=== PATIENT | female | born 1990 | race Caucasian/White ===

== ENCOUNTER 2018-10-23 19:36 | Emergency (ER) | payer OTHER ==
[~2018-10-23] VITALS: Ht 154.9 cm; Wt 62.6 kg
[~2018-10-23 19:36] MED LIST: ACET500 PO; AMOCLA500 PO; AMOX500 PO; BCP; BENZ100A PO; CIPRSO OD; CODACE30 PO; CYCL10 PO; Coumadin7.5 MG PO; Esgic Tablet1 EACH PO; Florastor250 MG PO; HYDACE5 PO; HYDR.5TC TOP; IBUP600 PO; Lovenox100 MG/1 M SC; METPRE4DP PO; MULTCH; MULVITMINE PO; NAPR500 PO; NEOPOLHYDS OT; NITR100CA PO; ONDA4ODT MM; OXYACE5T PO; POTCHL20ER PO; PROM25 PO; Percocet 5-3251 EACH PO; RXCYCL10 PO; SEASONIQUE; SULTRIDS PO; TRAACE PO; TRAM50 PO; Zithromax250 MG PO; [UNRECOGNIZED DRUG - OTHER]; [UNRECOGNIZED DRUG - REMARK]
== END 2018-10-23 20:56 | disposition home or self-care (01) ==
LOC: ER 19:36
DX: S22.31XA Fracture of one rib, right side, initial encounter for closed fracture (principal); Y04.8XXA Assault by other bodily force, initial encounter; F17.200 Nicotine dependence, unspecified, uncomplicated
CPT/HCPCS: 71046; 99283-25; A9270

== ENCOUNTER 2018-12-17 14:25 | Emergency (ER) | payer OTHER ==
[~2018-12-17] VITALS: Ht 157.5 cm; Wt 49.9 kg
== END 2018-12-17 15:32 | disposition left against medical advice (07) ==
LOC: ER 14:25
DX: Z53.21 Procedure and treatment not carried out due to patient leaving prior to being seen by health care provider (principal)

== ENCOUNTER 2018-12-20 20:12 | Emergency (ER) | payer OTHER ==
[~2018-12-20] VITALS: Ht 162.6 cm; Wt 65.8 kg
== END 2018-12-20 22:20 | disposition home or self-care (01) ==
LOC: ER 20:12
DX: F25.9 Schizoaffective disorder, unspecified (principal); G43.909 Migraine, unspecified, not intractable, without status migrainosus; F17.200 Nicotine dependence, unspecified, uncomplicated
CPT/HCPCS: 99283

== ENCOUNTER 2019-11-04 13:16 | Emergency (ER) | payer OTHER ==
[~2019-11-04] VITALS: Ht 144.8 cm; Wt 63.2 kg
[~2019-11-04 13:16] MED LIST changes: +POTASSIUM CHLO20 MEQ PO; +PRENATAL TABLE1 EAC2 PO
== END 2019-11-04 13:30 | disposition left against medical advice (07) ==
LOC: ER 13:16
DX: Z53.21 Procedure and treatment not carried out due to patient leaving prior to being seen by health care provider (principal)
CPT/HCPCS: 99281

== ENCOUNTER 2020-08-26 04:03 | Emergency (ER) | payer OTHER ==
[~2020-08-26] VITALS: Ht 154.9 cm; Wt 65.8 kg
[~2020-08-26 04:03] MED LIST changes: +METH40 PO
== END 2020-08-26 05:12 | disposition home or self-care (01) ==
LOC: ER 04:03
DX: R05 Cough (principal); F17.200 Nicotine dependence, unspecified, uncomplicated; Z79.891 Long term (current) use of opiate analgesic; Z87.442 Personal history of urinary calculi
CPT/HCPCS: 87081; 87430; 96372-59; 96374; 99283-25; J1100; J1885

== ENCOUNTER → 2021-01-21 | Outpatient (CLI) | payer OTHER ==
[2021-01-22 10:10] LABS: Candida species (DNA Probe) Negative (NEGATIVE); G. vaginalis (DNA Probe) Positive (NEGATIVE); T. vaginalis (DNA Probe) Positive (NEGATIVE)
[2021-01-22 23:08] LABS: CHLAMYDIA TRACHOMATIS, NAA Negative (Negative)
== END | disposition home or self-care (01) ==
LOC: LAB 13:00 → LAB SHORT 13:00
PROVIDERS: Nurse Practitioner
DX: N89.8 Other specified noninflammatory disorders of vagina (principal); Z20.2 Contact with and (suspected) exposure to infections with a predominantly sexual mode of transmission
CPT/HCPCS: 87480; 87491; 87510; 87591; 87660

== ENCOUNTER → 2021-06-06 | Outpatient (CLI) | payer OTHER ==
[2021-06-07 14:23] LABS: Candida species (DNA Probe) Negative (NEGATIVE); G. vaginalis (DNA Probe) Positive (NEGATIVE); T. vaginalis (DNA Probe) Negative (NEGATIVE)
[2021-06-07 20:11] LABS: CHLAMYDIA TRACHOMATIS, NAA Negative (Negative)
== END ==
LOC: LAB SHORT 13:45
PROVIDERS: Registered Nurse Community Health
DX: Z11.3 Encounter for screening for infections with a predominantly sexual mode of transmission (principal); N89.8 Other specified noninflammatory disorders of vagina; R39.15 Urgency of urination
CPT/HCPCS: 87086; 87480; 87491; 87510; 87591; 87660

== ENCOUNTER 2021-09-24 10:16 | Emergency (ER) | payer OTHER ==
[~2021-09-24] VITALS: Ht 154.9 cm; Wt 68.0 kg
[2021-09-24] MEDS ORDERED: DEXT30SU PO (12:00)
[2021-09-24] MEDS ORDERED: KETO10 PO (12:00)
[2021-09-24 13:12] LABS: Influenza B, PCR NEGATIVE (NEGATIVE); Resp Syncytial Virus, PCR NEGATIVE (NEGATIVE); SARS-Cov-2 (COVID-19) PCR, MMC NEGATIVE (NEGATIVE)
[2021-09-24] MEDS ORDERED: Tamiflu75 MG PO (13:19)
[2021-09-24 13:27] LABS: Influenza A, PCR POSITIVE (NEGATIVE)
[2021-09-24] MEDS ORDERED: SYMMETREL PO (16:41)
== END 2021-09-24 14:35 | disposition home or self-care (01) ==
LOC: ER 10:16
PROVIDERS: Physician Assistant
DX: J10.1 Influenza due to other identified influenza virus with other respiratory manifestations (principal); F17.200 Nicotine dependence, unspecified, uncomplicated; Z88.5 Allergy status to narcotic agent; Z20.822 Contact with and (suspected) exposure to COVID-19
CPT/HCPCS: 0241U; A9270

== ENCOUNTER → 2022-08-01 | Outpatient (CLI) | payer OTHER ==
[~2022-08-01] MED LIST changes: +DEXT30SU PO; +KETO10 PO; +SYMMETREL PO; +Tamiflu75 MG PO
[2022-08-01 19:31] LABS: BASOPHILS ABSOLUTE AUTO 0.02 K/mm3 (0.00-0.23); BASOPHILS PERCENT AUTO 0 % (0-2); EOSINOPHILS ABSOLUTE AUTO 0.11 K/mm3 (0.00-0.68); EOSINOPHILS PERCENT AUTO 2 % (0-6); Hemoglobin 12.5 g/dL (11.5-16.0); IMMATURE GRAN ABSOLUTE AUTO 0.01 K/mm3 (0.00-0.10); IMMATURE GRAN PERCENT AUTO 0 % (0-1); LYMPHOCYTES PERCENT AUTO 38 % (21-46); MONOCYTES ABSOLUTE AUTO 0.44 K/mm3 (0.16-1.47); MONOCYTES PERCENT AUTO 8 % (4-13); Mean Corpuscular HGB 28.6 pg (26.0-34.0); Mean Corpuscular HGB Conc 32.9 g/dL (31.5-36.5); Mean Corpuscular Volume 87 fL (80-100); Mean Platelet Volume 12.3 fL (9.1-12.4); NEUTROPHILS ABSOLUTE AUTO 2.76 K/mm3 (1.96-9.15); NEUTROPHILS PERCENT AUTO 52 % (41-73); Platelet Count 79 K/mm3 (150-400); RDW Coefficient Variation 12.9 % (11.7-14.2); RDW Standard Deviation 40.9 fL (35.1-46.3); Red Blood Cell Count 4.37 M/mm3 (3.80-5.20); White Blood Cell Count 5.34 K/mm3 (4.00-11.30)
[2022-08-01 20:22] LABS: Prolactin 28.9 ng/mL
[2022-08-01 20:25] LABS: Albumin, Blood 4.1 g/dL (3.4-5.0); Albumin/Globulin Ratio 0.9 (0.8-1.8); Bilirubin, Total 0.5 mg/dL (0.1-1.0); Bun/Creatinine Ratio 14.9 (12.0-20.0); Calcium, Blood 8.8 mg/dL (8.5-10.1); Creatinine, Blood 0.74 mg/dL (0.40-1.00); Globulin, Blood 4.4 g/dL (2.2-4.0); Potassium, Blood 3.9 mmol/L (3.5-5.5); Thyroid Stimulating Hormone 6.16 uIU/mL (0.360-4.800); Total Protein, Blood 8.5 g/dL (6.4-8.2)
[2022-08-01 22:05] LABS: Candida species (DNA Probe) Negative (NEGATIVE); G. vaginalis (DNA Probe) Negative (NEGATIVE); T. vaginalis (DNA Probe) Negative (NEGATIVE)
[2022-08-03 00:10] LABS: CHLAMYDIA TRACHOMATIS, NAA Negative (Negative)
== END | disposition home or self-care (01) ==
LOC: LAB SHORT 14:49 → LAB 14:49
PROVIDERS: Nurse Practitioner Family
DX: Z32.00 Encounter for pregnancy test, result unknown (principal); Z13.29 Encounter for screening for other suspected endocrine disorder; N89.8 Other specified noninflammatory disorders of vagina; G43.109 Migraine with aura, not intractable, without status migrainosus; N64.4 Mastodynia
CPT/HCPCS: 80053; 84146; 84443; 85025; 87086; 87480; 87491; 87510; 87591; 87660

== ENCOUNTER 2023-06-07 14:46 | Emergency (ER) | payer OTHER ==
[~2023-06-07] VITALS: Ht 167.6 cm; Wt 74.8 kg
[2023-06-07 18:43] VITALS: BP 135/88
[2023-06-07] MEDS ORDERED: [UNRECOGNIZED DRUG - OTHER] PO ×2 (19:03→19:05)
[2023-06-07] MEDS ORDERED: MIRALAX17 GM PO ×2 (19:03→19:05)
[2023-06-07] MEDS ORDERED: MINERAL OIL133 M1 PR ×2 (19:03→19:05)
== END 2023-06-07 18:40 | disposition home or self-care (01) ==
LOC: ER 14:46
DX: K59.00 Constipation, unspecified (principal); G43.909 Migraine, unspecified, not intractable, without status migrainosus; F17.200 Nicotine dependence, unspecified, uncomplicated
CPT/HCPCS: 74018; 99283-25

== ENCOUNTER → 2024-10-01 | Outpatient (CLI) | payer OTHER | LOC: LAB 13:33 → LAB SHORT 13:33 | DX: N89.8 Other specified noninflammatory disorders of vagina (principal) ==

== ENCOUNTER → 2025-02-26 | Outpatient (CLI) | payer OTHER ==
[~2025-02-26] MED LIST changes: +FLUT.05NI; +MINERAL OIL133 M1 PR; +MIRALAX17 GM PO; +Zyrtec10 MG PO; +[UNRECOGNIZED DRUG - OTHER] PO
[2025-02-26 19:26] LABS: Candida Group, PCR NOT DETECTED (NOT DETECT); Candida glabrata-krusei, PCR NOT DETECTED (NOT DETECT)
[2025-02-26 19:29] LABS: Bacterial Vaginosis PCR Positive (NEGATIVE)
[2025-02-26 19:56] LABS: Chlamydia Trachomatis Vaginal NOT DETECTED (NOT DETECT); Neisseria Gonorrhoea Vaginal NOT DETECTED (NOT DETECT)
[2025-02-28 15:00] LABS: HIV 1,2 COMBO ANTIGEN/ANTIBODY Negative (Negative)
[2025-03-04 04:07] LABS: HSV SUBTYPE SOURCE PERI-ANAL
== END ==
LOC: LAB SHORT 16:53 → LAB 16:53
PROVIDERS: Emergency Medicine
DX: R59.0 Localized enlarged lymph nodes (principal); Z87.898 Personal history of other specified conditions
CPT/HCPCS: 81515; 86592; 87389; 87491; 87529; 87591

== ENCOUNTER → 2025-03-19 | Outpatient (CLI) | payer OTHER ==
[2025-03-23 09:02] LABS: HSV SUBTYPE SOURCE Blood
== END ==
LOC: LAB SHORT 14:00 → LAB 14:00
PROVIDERS: Nurse Practitioner Family
DX: Z09 Encounter for follow-up examination after completed treatment for conditions other than malignant neoplasm (principal); Z86.19 Personal history of other infectious and parasitic diseases
CPT/HCPCS: 87529

== ENCOUNTER → 2025-03-21 | Outpatient (CLI) | payer OTHER ==
[~2025-03-21] MED LIST changes: -FLUT.05NI; -Zyrtec10 MG PO
[2025-03-21 18:25] LABS: BASOPHILS ABSOLUTE AUTO 0.02 K/mm3 (0.00-0.23); BASOPHILS PERCENT AUTO 0 % (0-2); EOSINOPHILS ABSOLUTE AUTO 0.10 K/mm3 (0.00-0.68); EOSINOPHILS PERCENT AUTO 2 % (0-6); Hematocrit 37.0 % (33.0-51.0); Hemoglobin 12.1 g/dL (11.5-16.0); IMMATURE GRAN ABSOLUTE AUTO 0.01 K/mm3 (0.00-0.10); IMMATURE GRAN PERCENT AUTO 0 % (0-1); LYMPHOCYTES ABSOLUTE AUTO 1.65 K/mm3 (0.84-5.20); LYMPHOCYTES PERCENT AUTO 34 % (21-46); MONOCYTES ABSOLUTE AUTO 0.33 K/mm3 (0.16-1.47); MONOCYTES PERCENT AUTO 7 % (4-13); Mean Corpuscular HGB Conc 32.7 g/dL (31.5-36.5); Mean Corpuscular Volume 88 fL (80-100); NEUTROPHILS ABSOLUTE AUTO 2.69 K/mm3 (1.96-9.15); NEUTROPHILS PERCENT AUTO 56 % (41-73); NRBC ABSOLUTE 0.00 K/mm3 (0.00-0.02); NRBC Auto 0.0 /100 WBC (0.0-0.2); Platelet Count 88 K/mm3 (150-400); RDW Coefficient Variation 12.8 % (11.7-14.2); RDW Standard Deviation 41.5 fL (35.1-46.3)
[2025-03-21 23:36] LABS: Anion Gap 7.0 mmol/L (3-11); Blood Urea Nitrogen 14.0 mg/dL (8-24); CO2, Blood 28.0 mmol/L (21-32); Calcium, Blood 8.9 mg/dL (8.5-10.1); Chloride, Blood 104.0 mmol/L (98-108); Creatinine, Blood 0.67 mg/dL (0.40-1.00); Glucose, Blood 102.0 mg/dL (70-99); Magnesium, Blood 2.1 mg/dL (1.6-2.4); Potassium, Blood 4.0 mmol/L (3.5-5.5); Sodium, Blood 135.0 mmol/L (136-145); Thyroid Stimulating Hormone 4.56 uIU/mL (0.360-4.800)
== END ==
LOC: LAB 17:49 → LAB SHORT 17:49
PROVIDERS: Nurse Practitioner Family
DX: D69.6 Thrombocytopenia, unspecified (principal); R94.6 Abnormal results of thyroid function studies; E83.41 Hypermagnesemia
CPT/HCPCS: 80048; 83735; 84443; 85025

== ENCOUNTER 2025-04-05 15:05 | Emergency (ER) | payer OTHER ==
[~2025-04-05] VITALS: Ht 154.9 cm; Wt 74.8 kg
[2025-04-05 15:45] LABS: BASOPHILS ABSOLUTE AUTO 0.02 K/mm3 (0.00-0.23); BASOPHILS PERCENT AUTO 0 % (0-2); EOSINOPHILS ABSOLUTE AUTO 0.12 K/mm3 (0.00-0.68); EOSINOPHILS PERCENT AUTO 2 % (0-6); Hematocrit 37.1 % (33.0-51.0); Hemoglobin 12.4 g/dL (11.5-16.0); IMMATURE GRAN ABSOLUTE AUTO 0.03 K/mm3 (0.00-0.10); IMMATURE GRAN PERCENT AUTO 0 % (0-1); LYMPHOCYTES ABSOLUTE AUTO 1.80 K/mm3 (0.84-5.20); LYMPHOCYTES PERCENT AUTO 26 % (21-46); MONOCYTES ABSOLUTE AUTO 0.66 K/mm3 (0.16-1.47); MONOCYTES PERCENT AUTO 10 % (4-13); Mean Corpuscular HGB Conc 33.4 g/dL (31.5-36.5); Mean Corpuscular Volume 88 fL (80-100); NEUTROPHILS ABSOLUTE AUTO 4.18 K/mm3 (1.96-9.15); NEUTROPHILS PERCENT AUTO 61 % (41-73); NRBC ABSOLUTE 0.00 K/mm3 (0.00-0.02); NRBC Auto 0.0 /100 WBC (0.0-0.2); Platelet Count 67 K/mm3 (150-400); RDW Coefficient Variation 12.8 % (11.7-14.2); RDW Standard Deviation 41.1 fL (35.1-46.3)
[2025-04-05] MEDS ORDERED: NS 1,000 ML IV SCH (16:00)
[2025-04-05] MEDS ORDERED: Diazepam 5 MG / ML 2ML SYR IV ONE (16:00)
[2025-04-05 16:12] LABS: Alanine Aminotransfer (ALT/SGP 70.0 U/L (12-78); Albumin, Blood 3.9 g/dL (3.4-5.0); Albumin/Globulin Ratio 1.0 (0.8-1.8); Anion Gap 11.0 mmol/L (3-11); Aspartate Aminotrans (AST/SGOT 54.0 U/L (12-37); Bilirubin, Total 0.3 mg/dL (0.1-1.0); Blood Urea Nitrogen 12.0 mg/dL (8-24); CO2, Blood 28.0 mmol/L (21-32); Calcium, Blood 8.9 mg/dL (8.5-10.1); Chloride, Blood 101.0 mmol/L (98-108); Creatinine, Blood 0.61 mg/dL (0.40-1.00); Globulin, Blood 4.0 g/dL (2.2-4.0); Glucose, Blood 94.0 mg/dL (70-99); Magnesium, Blood 2.0 mg/dL (1.6-2.4); Potassium, Blood 4.0 mmol/L (3.5-5.5); Sodium, Blood 136.0 mmol/L (136-145); Total Protein, Blood 7.9 g/dL (6.4-8.2)
[2025-04-05 17:32] VITALS: BP 122/80
== END 2025-04-05 17:33 | disposition home or self-care (01) ==
LOC: ER 15:05
PROVIDERS: Student in an Organized Health Care Education/Training Program
DX: G90.81 Serotonin syndrome (principal); T43.225A Adverse effect of selective serotonin reuptake inhibitors, initial encounter; F17.200 Nicotine dependence, unspecified, uncomplicated; Z88.8 Allergy status to other drugs, medicaments and biological substances; Z79.891 Long term (current) use of opiate analgesic; Z79.899 Other long term (current) drug therapy
CPT/HCPCS: 80053; 82550; 83735; 84703; 85025; 93005; 93010; 96361; 96374; 99284-25; J3360; J7030

== ENCOUNTER → 2025-04-20 | Outpatient (CLI) | payer OTHER ==
[~2025-04-20] MED LIST changes: +FLUT.05NI; +Zyrtec10 MG PO
[2025-04-20 16:00] LABS: Bacterial Vaginosis PCR Negative (NEGATIVE); Candida Group, PCR NOT DETECTED (NOT DETECT)
[2025-04-20 16:02] LABS: Candida glabrata-krusei, PCR DETECTED (NOT DETECT)
[2025-04-20 16:35] LABS: Chlamydia Trachomatis Vaginal NOT DETECTED (NOT DETECT); Neisseria Gonorrhoea Vaginal NOT DETECTED (NOT DETECT)
== END | disposition home or self-care (01) ==
LOC: LAB SHORT 13:23 → LAB 13:23
PROVIDERS: Physician Assistant Medical
DX: N89.8 Other specified noninflammatory disorders of vagina (principal)
CPT/HCPCS: 81515; 87491; 87591

== ENCOUNTER 2025-04-24 13:10 | Emergency (ER) | payer OTHER ==
[~2025-04-24] VITALS: Ht 154.9 cm; Wt 81.7 kg
[~2025-04-24 13:10] MED LIST changes: -FLUT.05NI; -Zyrtec10 MG PO
[2025-04-24 13:39] VITALS: BP 135/81
[2025-04-24] MEDS ORDERED: AMOX500 PO (13:45)
[2025-04-24] MEDS ORDERED: Zyrtec10 MG PO (13:45)
[2025-04-24] MEDS ORDERED: FLUT.05NI (13:45)
== END 2025-04-24 13:46 | disposition home or self-care (01) ==
LOC: ER 13:10
DX: H66.91 Otitis media, unspecified, right ear (principal); F17.200 Nicotine dependence, unspecified, uncomplicated; Z88.6 Allergy status to analgesic agent; Z79.899 Other long term (current) drug therapy
CPT/HCPCS: 99282